=== PATIENT | female | born 1945 | race Caucasian/White ===

== ENCOUNTER → 2016-10-14 | Outpatient (CLI) | payer MEDICARE, BC | LOC: MW.CHFP 08:00 | PROVIDERS: ATTEND Physician Assistant | DX: M25.562 Pain in left knee (principal) | CPT/HCPCS: G0463 ==

== ENCOUNTER → 2016-10-18 | Outpatient (CLI) | payer MEDICARE, BC ==
--- NOTE | 2016-10-21 10:42 | MR ---
EXAMINATION: MRI left knee HISTORY: Pain COMPARISON: None TECHNIQUE: Multiplanar and multisequence images obtained of the left knee without contrast. FINDINGS: The patellar and quadriceps tendons are intact. The ACL and the PCL are intact. There is s evere articular cartilage thinning within the patellofemoral compartment with mild subchondral edema . There is also irregular articular cartilage thinning within the medial and lateral compartments. T he medial and lateral menisci are intact. The medial and lateral collateral ligament complexes are i ntact. Small osteophytes are noted. No suspicious bone marrow signal changes. Trace joint effusion a nd Craft's cyst. IMPRESSION: 1. Advanced osteoarthritic changes and joint space narrowing within the left knee most prominent wit hin the patellofemoral compartment. 2. No evidence of acute internal derangement of the knee.
== END ==
LOC: MW.MRI 14:45
PROVIDERS: ATTEND Physician Assistant
DX: M25.562 Pain in left knee (principal)
CPT/HCPCS: 73721-26-LT; 73721-LT